=== PATIENT | male | born 1945 | race Caucasian/White ===

== ENCOUNTER 2016-12-07 09:47 | Inpatient (IN) ==
[2016-12-07] MEDS ORDERED: Bupivacaine-MPF 0.25% 10 ML VIAL ONE ×2 (10:22→11:21)
[2016-12-07] MEDS ORDERED: Protamine Sulfate 50 MG/5 ML VIAL IVP ONE (10:22)
[2016-12-07] MEDS ORDERED: Lidocaine 1% 20 ML MDV ONE (10:22)
[2016-12-07] MEDS ORDERED: Heparin 1,000 UNITS/500 mL NS 500 ML ONE ×2 (10:22→10:57)
[2016-12-07] MEDS ORDERED: Albuterol 2.5 MG/3 ML NEBULIZER ONE (10:23)
[2016-12-07] MEDS ORDERED: CeFAZolin Pre 2,000 MG/100 ML 2,000 MG/100 ML BAG IVPB ONE (10:27)
[2016-12-07] MEDS ORDERED: Albuterol 2.5 MG/3 ML NEBULIZER IH ONE (10:27)
[2016-12-07] MEDS: Ringers Solution, Lactated 1,000 ML IVC SCH ×2 (10:28→17:02)
[2016-12-07] MEDS ORDERED: *HR* Midazolam HCl 2 MG/2 ML VIAL ONE (10:33)
[2016-12-07] MEDS ORDERED: *HR* Propofol 200 MG/20 ML VIAL IVP ONE (10:33)
[2016-12-07] MEDS ORDERED: *HR* FentaNYL (PF) 100 MCG/2 ML VIAL ONE ×3 (10:33→14:31)
[2016-12-07] MEDS ORDERED: Lidocaine -MPF 2% 2 ML VIAL ONE (10:33)
--- NOTE | 2016-12-07 10:35 | Anesthesia Evaluation PreOp ---
Date of Encounter: 12/07/16 Time of Encounter: 10:32 - Past History Planned Operation: L CEA Cardiac History: CHF, HTN, Hyperlipidemia, Cardiac Surgery (CABG ~ 1994), Other (good functional capacity (can walk up a flight of stairs)) Pulmonary History: Smoker NETWORK MGR History: Other (bilateral carotid stenosis - no hx of CVA) Other Medical History: Denies Any Significant HX Anesthesia History: No Prior Anesthetic Complications, Past Anesthesia (CABG, neck fusion, hip replacement, fem-fem, L fem-pop) Alcohol Use: none Drug use: none Medications and Allergies Ascorbic Acid [Vitamin C] 1,000 mg PO DAILY 06/26/15 [History] Aspirin [Adult Low Dose Aspirin EC] 81 mg PO DAILY 06/26/15 [History] Carvedilol [Coreg] 6.25 mg PO BIDWM 06/26/15 [History] Clopidogrel [Plavix] 75 mg PO DAILY 06/26/15 [History] Lisinopril [Zestril] 5 mg PO DAILY 06/26/15 [History] OxyCODONE/APAP 10/325 [Percocet 10/325] 1 - 2 tab PO Q4HR PRN #40 tablet [Rx] Allergies No Known Allergies Allergy (Verified 06/26/15 10:50) - Meds/Allergy Pre-op Review Medications Reviewed: Yes Allergies Reviewed: Yes Beta Blockers on Current Med List: Yes If Beta Blockers taken, Date/Time (Last Dose taken): 12-07-16 coreg 7 am Anesthesia Results - Labs Laboratory Tests 12/06/16 12/06/16 12/06/16 14:54 14:54 14:54 WBC 5.7 Hgb 14.8 Hct 44.8 Plt Count 176 PT 11.3 INR 1.0 APTT 28.4 Sodium 135 L Potassium 4.6 H Chloride 99 Carbon Dioxide 26 BUN 20 Creatinine 1.08 Est GFR ( Amer) > 60 Est GFR (Non-Af Amer) > 60 BUN/Creatinine Ratio 19 Glucose 84 Calculated Osmolality 282 Calcium 9.9 - Imaging Additional studies: ordering EKG Anesthesia Exam Last Vital Signs Temp 97.5 F L 12/07/16 10:22 Pulse 64 12/07/16 10:22 Resp 18 12/07/16 10:22 BP 160/73 12/07/16 10:22 Pulse Ox 95 12/07/16 10:22 Weight: 82 kg NPO (# of Hours): >> 8 hrs - HEENT Pupil (Motor): Pupils equal, EOMI Mallampati: III Teeth: Missing Oral Opening: Greater than 3 - NETWORK MGR LOC: Oriented NETWORK MGR Motor: Normal RUE, Normal LUE, Normal RLE, Normal LLE, Normal Face - Cardiac Rhythm: Regular Murmur: None - Pulmonary Breath Sounds: bilateral Clear Respiratory Effort: Symmetrical Anesthesia Assess/Plan ASA Score: 3 Modified [place] Scale for Level of Consciousness: Cooperative, oriented, and tranquil Anesthetic Plan: General Monitoring Plan: Standard Monitors, A-Line Recovery Plan: PACU
--- NOTE | 2016-12-07 11:15 | History & Physical Report ---
Date of Encounter: 12/07/16 Time of Encounter: 10:45 24 Hour HP Update - Instructions Instructions: If the History and Physical is less than 30 days old and was completed prior to A.M. admission and or procedure and has NOT been updated on calendar day of procedure please complete this update prior to performing procedure. - Update Patient reports changes in Medical Condition: No Changes in examination, assessment, or condition: No Changes in Medication: No Preop tests/diagnostics Reviewed: Yes Surgery Remains Indicated: Yes Consent for Planned Operative Procedure(s) Verified: Yes - Pre-Operative Checklist Preoperative Checklist Indicated: Yes Prophylactic Antibiotic Ordered: Yes (vancomycin due to risk of MRSA) Home Medications Include Beta Daniel: Yes Beta Daniel Taken Today (Day of Surgery): Yes Beta Daniel Taken Yesterday (Day Prior to Surgery): Yes Is VTE Prophylaxis Indicated?: Yes
[2016-12-07] MEDS ORDERED: *HR* Remifentanil 2 MG VIAL IVP ONE (11:48)
[2016-12-07] MEDS ORDERED: EPHEDrine 50 MG/ML VIAL ONE (12:14)
[2016-12-07] MEDS ORDERED: Vancomycin 1,000 MG VIAL ONE (12:39)
[2016-12-07] MEDS ORDERED: *HR* Heparin 5,000 UNIT/ML VIAL ONE ×2 (13:28→14:14)
[2016-12-07] MEDS ORDERED: *HR* Metoprolol 5 MG/5 ML VIAL IVP PRN (13:31)
[2016-12-07] MEDS ORDERED: *HR* Morphine 2 MG/ML SYRINGE IVP PRN ×2 (13:31→17:35)
[2016-12-07] MEDS ORDERED: Ondansetron 4 MG/2 ML VIAL IVP ONE (13:31)
[2016-12-07] MEDS ORDERED: Neostigmine Methylsulfate 3 MG/3 ML SYRINGE ONE (16:00)
[2016-12-07] MEDS ORDERED: Dexamethasone 4 MG/ML VIAL ONE (16:00)
[2016-12-07] MEDS ORDERED: Ondansetron 4 MG/2 ML VIAL ONE (16:00)
[2016-12-07] MEDS ORDERED: *HR* Morphine 10 MG/ML VIAL ONE (16:07)
--- NOTE | 2016-12-07 16:12 | Operative Note ---
Date of procedure: 12/07/16 Pre-op diagnosis: 80-99% Left internal carotid artery stenosis Post-op diagnosis: same Procedure: Left carotid endarterectomy with hemashield patch angiolasty. Complications: None Anesthesia: ANJUA Surgeon: Markos Bowles Estimated blood loss (cc): 100 Specimen: Left carotid plaque Condition: stable Disposition: PACU Procedure in Detail: Indications: The patient is a 71 year old male who was found to have a symptomatic 80-99% left internal carotid artery stenosis. A left carotid endarterectomy was recommended to reduce his risk of stroke. Procedure: The patient was identified in the preoperative area. The risks, benefits, and alternatives of the procedure were discussed and all questions were answered. The patient was then taken to the operating room and placed in supine position on the operating table. After induction of general endotracheal anesthesia, the patient was cleaned and draped in normal sterile fashion. A longitudinal incision was made anterior to his left sternocleidomastoid muscle. Hemostasis was then obtained via electrocautery. Through a process of blunt, sharp, and electrocautery dissection, the platysma was traversed. The jugular vein was identified. The facial vein was clamped, divided, tied off with a 2-0 silk suture ligature. The jugular vein was retracted, exposing the carotid bifurcation. Patient received 3000 units of heparin intravenously at this time. Proximal dissection of the common and external carotid arteries were performed circumferentially. Dissection of the internal carotid was performed circumferentially. Vessels loops were passed around the internal and external carotid and an umbilical tape was passed from the common carotid artery. The patient received additional 2000 units of heparin intravenously. Additional heparin was given throughout the case to maintain adequate anticoagulation. After waiting adequate time for it to circulate, the vessels were occluded and a longitudinal arteriotomy was made into the common carotid artery extending into the internal carotid beyond the plaque. Vigorous pulsatile retrograde flow was noted from the internal carotid artery upon release of the loop; therefore, no shunt was placed. A dental [place] was used to perform a standard endarterectomy. A calcific, irregular and ulcerated plaque was excised. Proximal and distal endpoints were inspected. No elevated flaps were noted. A Hemashield patch was cut to fit the defect and sutured in place with running 6 -0 Prolene. Prior to completing the closure, each vessel was flushed and then reoccluded. Heparinized saline was infused into the lumen. The patch was completed. Flow was restored in the external carotid artery, followed the common carotid artery, lastly the internal carotid artery was opened. A low resistance arterialized signal was present within the internal carotid artery beyond the patch. Thrombin and Gelfoam were used to aid in hemostasis. Fibrillar was also used. Meticulous hemostasis was obtained throughout the wound with electrocautery. The patient received 2 doses of Protamine 15mg intravenously. Platelet rich and platelet poor plasma were infused into the wounds. The sternocleidomastoid was reapproximated with interrupted 3-0 Vicryl. Platelet rich and platelet poor plasma were infused into the wound. A TLS drain was brought through a separate stab incision and sutured in place with 0 silk suture. The platysma was reapproximated with running 3-0 Vicryl. Local anesthetic was infused in the skin. A 3-0 Monocryl was used to reapproximate the skin. Sterile dressing was applied. The patient was extubated, taken to the recovery room in stable condition.
--- NOTE | 2016-12-07 17:11 | Electrocardiograph Report ---
[place] [id number] Test Date: 2016-12-07 Pat Name: Trey Donovan Department: 106 Room: Gender: M Chair Frame Builder: : 1945 Requested By: Brigida Todd Order Number: [id number] Reading MD: Raegan Chi Measurements Intervals [place] Rate: 59 P: 19 CA: 139 QRS: 29 QRSD: 109 T: 128 QT: 432 QTc: 432 Interpretive Statements SINUS BRADYCARDIA LEFT VENTRICULAR HYPERTROPHY AND ST-T CHANGE Electronically Signed On 12-07-2016 17:10:24 EDT by Raegan Chi
--- NOTE | 2016-12-07 17:21 | Anesthesia Evaluation Post Op ---
Date of Encounter: 12/07/16 Time of Encounter: 17:20 - Vital Signs Vital Signs: Vital Signs/O2 Sat, Most Current Temp Pulse Resp BP Pulse Ox 97.5 F L 45 12 108/40 99 12/07/16 17:14 12/07/16 17:14 12/07/16 17:14 12/07/16 17:14 12/07/16 17:14 - Lungs Lungs: Clear Ascult./Percussion - Airway Airway: Non-obstructed - Cardiovascular Regular Rate - Mental Status Mental Status: Alert & Oriented, Answers Appropriately - Pain Pain Scale: 0 Pain Scale used: Numeric (1 - 10) - Nausea Vomiting Nausea Vomiting: Not Present - Hydration Hydration: NPO, Draper catheter - Discharge PostOp Status: Transfer Patient to floor
[2016-12-07] MEDS ORDERED: *HR* HYDROcodone/Acet 5/325 mg TABLET PO PRN (17:35)
[2016-12-07] MEDS ORDERED: Naloxone 0.4 MG/ML INJ IVP PRN (17:35)
[2016-12-07] MEDS ORDERED: Ondansetron 4 MG/2 ML VIAL IVP PRN (17:35)
[2016-12-07] MEDS ORDERED: *HR* Labetalol 20 MG/4 ML SYRINGE IVP PRN (17:35)
[2016-12-07] MEDS ORDERED: Acetaminophen 325 MG TABLET PO PRN (17:35)
[2016-12-07] MEDS ORDERED: *HR* OxyCODONE Immed Rel 5 MG TABLET PO PRN (17:35)
[2016-12-07] MEDS: ceFAZolin 2,000 MG in D5% in Water 100 ML IVPB SCH (20:08)
[2016-12-07] MEDS ORDERED: Vancomycin 0 MG in D5% in Water 250 ML IVPB ONE (23:00)
[2016-12-07] MEDS ORDERED: Vancomycin 1,250 MG in D5% in Water 250 ML IVPB ONE (23:00)
[2016-12-08] MEDS: ceFAZolin 2,000 MG in D5% in Water 100 ML IVPB SCH (04:17)
[2016-12-08] MEDS ORDERED: *HR* Heparin 5,000 UNIT/ML VIAL SQ SCH (06:00)
--- NOTE | 2016-12-08 07:46 | Discharge Summary ---
Date of Encounter: 12/08/16 Time of Encounter: 07:55 - Discharge Diagnosis (1) Carotid stenosis, bilateral Priority: Primary Status: Chronic Comments: The patient is postopertaive day #1 after a left carotid endarterectomy for symptomatic left internal carotid artery stenosis. HIs incision is healing. He has no hematoma. He has no neurologic deficits. He will be discharged today. (2) Essential hypertension Priority: Secondary Status: Chronic Comments: He was counseled regarding atherosclerotic risk factor reduction. (3) Atherosclerotic heart disease of [place] coronary artery without angina pectoris Priority: Secondary Status: Chronic Qualifiers: [place] vs. transplanted heart: [place] heart Qualified Code(s): I25.10 - Atherosclerotic heart disease of [place] coronary artery without angina pectoris (4) Tobacco abuse Priority: Secondary Status: Chronic Comments: He was counseled regarding smoking cessation. - Discharge Medications Prescriptions: OxyCODONE/APAP 5/325 [Percocet 5/325 MG] 1 each PO Q6HR PRN #24 tablet PRN Reason: postoperative pain Home Medications: Ascorbic Acid [Vitamin C] 1,000 mg PO DAILY 06/26/15 [History] Carvedilol [Coreg] 6.25 mg PO BIDWM 06/26/15 [History] Clopidogrel [Plavix] 75 mg PO DAILY 06/26/15 [History] Aspirin 81 mg PO DAILY 12/07/16 [History] Lisinopril/Hydrochlorothiazide [Zestoretic 10-12.5 mg Tablet] 1 each PO DAILY [History] [place]-3/Dha/Epa/Fish Oil [Fish Oil 1,000 mg Softgel] 1,000 mg PO DAILY 12/07/16 [History] OxyCODONE/APAP 5/325 [Percocet 5/325 MG] 1 each PO Q6HR PRN #24 tablet 12/08/16 [Rx] Allergies/Adverse Reactions: Allergies No Known Allergies Allergy (Verified 12/07/16 10:52) Procedures/tests Complete & Pending: Procedures Performed prior 72 hours Category Date Time Status EKG [ECG 12 lead ECG] [ECG] Stat Y 12/07/16 10:34 Completed Date of admission: 12/07/16 17:49 Primary care physician: Laura Schultz Consults: 12/07/16 18:06 Consult to Carpenter Assistant Installer [CONS] Routine Reason for SW Consult: Family wants information on advanced directives. Sent home with admit handouts on advanced directives Procedure(s) Performed: Left carotid endarterectomy Discharging clinician: Markos Bowles Anticipated date of discharge: 12/08/16 - Patient Status Disposition: Home, Self-Care Condition: Good Functional capacity at discharge: independent ambulation Overall status at discharge: patient is back to baseline - Discharge Instructions Follow Up With: Markos Bowles MD [Partnered Physician] - 01/17/17 1:00 pm Laura Schultz MD [Primary Care Provider] - 12/21/16 2:30 pm Additional Instructions: May remove bandage and shower on 12/09/16. Wash wound gently and pat to dry. Call Dr. Bowles at [phone] with questions or concerns. - Diet and Activity Activity: increase activity as tolerated Diet: advance to your usual diet - Hospital Course Hospital course: Mr. Donovan is a 71 year old male with a symptomatic 80-99% left internal carotid artery stenosis. He underwent a left carotid endarterctomy on 12/07/16. He tolerated the procedure well. On postoeprative day #1 he was alert, without any neurologic deficits and his wound was healing without hematoma. He was discharged in stable condition on postoperative day #1 without complications. - Time Spent with Patient Total time spent providing and/or coordinating discharge services: Exam Vital Signs, Last 4 Hours Temp Pulse Resp BP Pulse Ox 12/08/16 05:24 97.4 F L 49 16 118/45 99 12/08/16 04:15 46 16 95/34 99 General: Present: Conversant, No Apparent Distress HEENT: Present: Trachea midline, Pupils equal Neck: Present: Other (incisions clean, dry and intact without erythema or drainage, no tongue deviation, no heamtoma). Absent: JVD, Tracheal deviation Cardiac: Present: Reg Rate and Rhythm Lungs: Present: Normal Breath Sounds Neuro: Present: Alert and responsive, No focal deficits noted, Motor nerves grossly intact, Sensory nerves grossly intact Abdomen: Present: Soft Vascular: Present: Normal capillary refill Skin: Present: No rashes noted on visualized skin - VTE Documentation of Mechanical Device: Intermittent pneumatic compression device
[2016-12-08 07:49] VITALS: BP 127/49
[2016-12-08] MEDS ORDERED: OMEGA FISH OIL PO SCH (09:00)
[2016-12-08] MEDS ORDERED: *HR* Metoprolol 5 MG/5 ML VIAL IVP SCH (09:00)
[2016-12-08] MEDS ORDERED: Aspirin 81 MG TAB.CHEW PO SCH (09:00)
[2016-12-08] MEDS ORDERED: Ascorbic Acid 500 MG TABLET PO SCH (09:00)
== END 2016-12-08 10:00 | disposition home or self-care (01) | DRG 39 ==
LOC: SAMDAY 09:47 → 2NNU 17:49
PROVIDERS: ADMIT Surgery; ATTEND Surgery

== ENCOUNTER 2022-01-06 11:42 | Inpatient (IN) ==
[2022-01-06 14:41] LABS: Basophils % 0.5 %; Eosinophils # 0.1 K/mcL (0.0-0.6); Eosinophils % 0.8 %; Hematocrit 35.6 % (37.5-50.1); Hemoglobin 11.2 g/dL (12.9-16.9); Immature Granulocytes % 0.5 % (0-4); Lymphocytes # 1.7 K/mcL (0.6-4.6); Lymphocytes % 20.8 %; Mean Corpuscular HGB Conc 31.5 g/dL (31.6-35.5); Mean Corpuscular Hemoglobin 31.3 pg (28.0-33.3); Mean Corpuscular Volume 99.4 fL (83.0-100.0); Mean Platelet Volume 12.2 fL (9.4-12.4); Monocytes # 0.5 K/mcL (0.0-1.3); Monocytes % 5.7 %; Neutrophils # 5.7 K/mcL (1.6-8.9); Platelet Count 232 K/mcL (140-400); Red Blood Count 3.58 M/mcL (4.19-5.50); Red Cell Distribution Width 13.4 % (11.5-14.5); Segmented Neutrophils % 71.7 %; White Blood Count 7.9 K/mcL (4.3-11.1)
[2022-01-06 14:52] LABS: Bacteria,Urine Few per hpf (None-Few); Bilirubin,Urine Negative (Negative); Blood,Urine Negative (Negative); Clarity,Urine Clear (Clear); Color,Urine Light-Yellow (Yellow); Glucose,Urine (UA) Normal (Normal); Hyaline Casts,Urine Few per lpf (None Seen); Ketones,Urine Negative (Negative); Leukocyte Esterase,Urine Small (Negative); Mucus,Urine Few per lpf (None-Few); Nitrite,Urine Negative (Negative); PH,Urine 5.5 pH Units (5.0-8.0); Protein,Urine Trace mg/dL (Neg-Trace); RBC,Urine 0-3 per hpf (0-3); Specific Gravity,Urine 1.027 (1.010-1.025); Squamous Epithelial Cell,Urine Few per hpf (None-Few); Urobilinogen,Urine Normal (Normal)
[2022-01-06] MEDS ORDERED: Levalbuterol Neb 1.25 MG/3 ML IH STA ×2 (14:54→17:42)
[2022-01-06] MEDS ORDERED: methylPREDNISolone 125 MG/2 ML VIAL IVP ONE (14:54)
[2022-01-06] MEDS ORDERED: Morphine Sulfate 2 MG/ML SYRINGE IVP STA (14:54)
[2022-01-06] MEDS ORDERED: Cefepime HCl 2,000 MG in 0.9 % Sodium Chloride 10 ML IVP ONE (14:55)
[2022-01-06 14:57] LABS: Calcium 9.6 mg/dL (8.6-10.3); Potassium 5.8 mEq/L (3.5-5.1)
[2022-01-06] MEDS ORDERED: Vancomycin 1,250 MG/262.5 ML IV.SOLN IVPB ONE (15:00)
[2022-01-06 15:07] LABS: Troponin I 0.32 ng/mL (< 0.04)
[2022-01-06] MEDS ORDERED: *HR* Heparin 5,000 UNIT/ML VIAL IVP ONE (15:17)
[2022-01-06] MEDS ORDERED: *HR* Heparin 5,000 UNIT/ML VIAL IVP PRN ×2 (15:17)
[2022-01-06] MEDS ORDERED: Aspirin 81 MG TAB.CHEW PO STA (15:19)
[2022-01-06] MEDS ORDERED: 0.9 % Sodium Chloride 500 ML IVC ONE (15:30)
[2022-01-06 15:58] LABS: Heparin anti-factor XA UFH < 0.04 IU/mL (0.30-0.70); INR 1.1; Prothrombin Time 12.1 Seconds (9.4-12.1)
[2022-01-06] MEDS ORDERED: 0.9 % Sodium Chloride 250 ML IVC ONE (16:00)
[2022-01-06] MEDS: Heparin 25,000UNIT/250ML 1/2NS 25,000 UNIT/250 ML IV.SOLN IVC SCH (17:38)
[2022-01-06] MEDS ORDERED: Acetaminophen 325 MG TABLET PO PRN (20:55)
[2022-01-06] MEDS ORDERED: Naloxone 0.4 MG/ML INJ IVP PRN (20:55)
[2022-01-06] MEDS ORDERED: Ondansetron 4 MG/2 ML VIAL IVP PRN (20:55)
[2022-01-06] MEDS: Ipratropium/Albuterol Neb 3 ML IH SCH (22:52)
[2022-01-06 23:39] LABS: Calcium 8.8 mg/dL (8.6-10.3); Potassium 7.2 mEq/L (3.5-5.1)
[2022-01-06] MEDS ORDERED: Albuterol 2.5 MG/3 ML NEBULIZER IH ONE (23:47)
[2022-01-06] MEDS ORDERED: Insulin Human Regular 5 UNIT in 0.9 % Sodium Chloride 10 ML IV ONE (23:47)
[2022-01-06] MEDS ORDERED: Calcium Gluconate 1gm/50mL 1 GM/50 ML BAG IVPB ONE (23:47)
[2022-01-06] MEDS ORDERED: Dextrose Gel 15 GM/37.5 ML TUBE PO PRN ×2 (23:48)
[2022-01-06] MEDS ORDERED: *HR* Dextrose 50 % in Water (Syg) 50 ML SYRINGE IVP PRN (23:48)
[2022-01-06] MEDS ORDERED: D5% in Water 1,000 ML IVC PRN (23:48)
[2022-01-07] MEDS: SODIUM ZIRCONIUM CYCLOSILICATE 5 GM POWD.PACK PO SCH ×3 (00:18→22:13)
[2022-01-07 02:07] LABS: Basophils % 0.1 %; Eosinophils % 0.1 %; Hematocrit 31.8 % (37.5-50.1); Immature Granulocytes % 0.3 % (0-4); Lymphocytes # 0.8 K/mcL (0.6-4.6); Lymphocytes % 8.9 %; Mean Corpuscular HGB Conc 31.4 g/dL (31.6-35.5); Mean Corpuscular Hemoglobin 31.3 pg (28.0-33.3); Mean Corpuscular Volume 99.7 fL (83.0-100.0); Mean Platelet Volume 12.2 fL (9.4-12.4); Monocytes # 0.1 K/mcL (0.0-1.3); Monocytes % 0.8 %; Neutrophils # 7.9 K/mcL (1.6-8.9); Platelet Count 218 K/mcL (140-400); Red Blood Count 3.19 M/mcL (4.19-5.50); Red Cell Distribution Width 13.4 % (11.5-14.5); Segmented Neutrophils % 89.8 %; White Blood Count 8.8 K/mcL (4.3-11.1)
[2022-01-07 02:35] LABS: Albumin 3.7 g/dL (3.5-5.7); Albumin/Globulin Ratio 1.2 (1.1-2.2); Bilirubin,Total 0.4 mg/dL (0.3-1.0); Calcium 9.1 mg/dL (8.6-10.3); Globulin 3.1 g/dL (2.4-3.5); Magnesium 2.3 mg/dL (1.6-2.6); Phosphorous 4.6 mg/dL (2.7-4.5); Potassium 5.3 mEq/L (3.5-5.1); Total Protein 6.8 g/dL (6.4-8.9); Troponin I 1.67 ng/mL (< 0.04)
[2022-01-07] MEDS: Ipratropium/Albuterol Neb 3 ML IH SCH ×4 (03:41→23:48)
[2022-01-07] MEDS ORDERED: Perflutren Lipid Microsphere 1.3 ML in 0.9 % Sodium Chloride 8.7 ML IVP PRN (04:49)
[2022-01-07] MEDS: Cefepime HCl 1,000 MG in 0.9 % Sodium Chloride 10 ML IVP SCH ×2 (06:07→06:15)
[2022-01-07 07:38] LABS: Albumin 3.6 g/dL (3.5-5.7); Albumin/Globulin Ratio 1.2 (1.1-2.2); Bilirubin,Total 0.4 mg/dL (0.3-1.0); Calcium 9.1 mg/dL (8.6-10.3); Total Protein 6.6 g/dL (6.4-8.9)
[2022-01-07] MEDS ORDERED: Iopamidol - 370 500 ML MLS IVP ONE (08:42)
[2022-01-07] MEDS ORDERED: 0.9 % Sodium Chloride 1,000 ML IVC ONE (11:27)
[2022-01-07] MEDS: Aspirin Enteric Coated 81 MG Tablet PO SCH (13:05)
[2022-01-07 13:20] LABS: Calcium 9.2 mg/dL (8.6-10.3); Potassium 6.1 mEq/L (3.5-5.1)
[2022-01-07] MEDS ORDERED: Furosemide 40 MG/4 ML VIAL IVP STA (14:02)
[2022-01-07 14:56] LABS: Potassium 5.6 mEq/L (3.5-5.1); Uric Acid 10.6 mg/dL (2.3-7.6)
[2022-01-07] MEDS: cephALEXin 500 MG CAPSULE PO SCH ×2 (17:04→22:26)
[2022-01-07] MEDS ORDERED: Cefepime HCl 2,000 MG in 0.9 % Sodium Chloride 10 ML IVP SCH (18:00)
[2022-01-07] MEDS: Heparin 25,000UNIT/250ML 1/2NS 25,000 UNIT/250 ML IV.SOLN IVC SCH (20:08)
[2022-01-07] MEDS: Doxycycline 100 MG CAPSULE PO SCH (22:26)
[2022-01-08] MEDS: Melatonin 3 MG TABLET PO PRN (01:18)
[2022-01-08 02:16] LABS: Basophils % 0.1 %; Hematocrit 29.1 % (37.5-50.1); Hemoglobin 9.1 g/dL (12.9-16.9); Immature Granulocytes % 0.7 % (0-4); Lymphocytes % 7.7 %; Mean Corpuscular HGB Conc 31.3 g/dL (31.6-35.5); Mean Corpuscular Hemoglobin 31.1 pg (28.0-33.3); Mean Corpuscular Volume 99.3 fL (83.0-100.0); Mean Platelet Volume 12.5 fL (9.4-12.4); Monocytes # 0.7 K/mcL (0.0-1.3); Monocytes % 5.6 %; Neutrophils # 11.2 K/mcL (1.6-8.9); Platelet Count 197 K/mcL (140-400); Red Blood Count 2.93 M/mcL (4.19-5.50); Red Cell Distribution Width 13.6 % (11.5-14.5); Segmented Neutrophils % 85.9 %; White Blood Count 13.1 K/mcL (4.3-11.1)
[2022-01-08 02:20] LABS: VBG Ionized Calcium 1.14 mmol/L (1.15-1.35)
[2022-01-08 02:31] LABS: Uric Acid 11.5 mg/dL (2.3-7.6)
[2022-01-08 02:32] LABS: Calcium 8.7 mg/dL (8.6-10.3); Magnesium 2.4 mg/dL (1.6-2.6); Phosphorous 5.1 mg/dL (2.7-4.5); Potassium 5.6 mEq/L (3.5-5.1)
[2022-01-08 03:38] LABS: Sodium, Urine 17.9 mEq/L
[2022-01-08] MEDS: Ipratropium/Albuterol Neb 3 ML IH SCH ×6 (04:25→22:56)
[2022-01-08] MEDS: Doxycycline 100 MG CAPSULE PO SCH ×2 (09:22→20:19)
[2022-01-08] MEDS: cephALEXin 500 MG CAPSULE PO SCH ×4 (09:22→20:19)
[2022-01-08] MEDS: Aspirin Enteric Coated 81 MG Tablet PO SCH (09:22)
[2022-01-08] MEDS ORDERED: Furosemide 40 MG/4 ML VIAL ONE (10:41)
[2022-01-08] MEDS: Furosemide 40 MG/4 ML VIAL IVP SCH ×2 (11:30→15:20)
[2022-01-08] MEDS ORDERED: Azithromycin 250 MG TABLET PO ONE (11:53)
[2022-01-08] MEDS ORDERED: Calcium Gluconate 1gm/50mL 1 GM/50 ML BAG IVPB SCH (12:00)
[2022-01-08] MEDS: predniSONE 20 MG TABLET PO SCH (12:52)
[2022-01-08] MEDS: Metoprolol XL (24 HR) Succ 25 MG TAB.ER.24H PO SCH (15:19)
[2022-01-08] MEDS: Albumin 25% 25gram/100mL 25 GM/100 ML IV.SOLN IVPB SCH ×2 (15:19→23:27)
[2022-01-09] MEDS: Heparin 25,000UNIT/250ML 1/2NS 25,000 UNIT/250 ML IV.SOLN IVC SCH (00:23)
[2022-01-09] MEDS: Ipratropium/Albuterol Neb 3 ML IH SCH ×7 (04:01→23:21)
[2022-01-09] MEDS: Albumin 25% 25gram/100mL 25 GM/100 ML IV.SOLN IVPB SCH ×2 (07:48→15:20)
[2022-01-09] MEDS: predniSONE 20 MG TABLET PO SCH (07:49)
[2022-01-09] MEDS: Metoprolol XL (24 HR) Succ 25 MG TAB.ER.24H PO SCH ×2 (07:49→20:56)
[2022-01-09] MEDS: Furosemide 40 MG/4 ML VIAL IVP SCH ×2 (07:49→15:20)
[2022-01-09] MEDS: Aspirin Enteric Coated 81 MG Tablet PO SCH (07:49)
[2022-01-09] MEDS: cephALEXin 500 MG CAPSULE PO SCH ×4 (07:50→20:56)
[2022-01-09] MEDS: Doxycycline 100 MG CAPSULE PO SCH ×2 (07:50→20:56)
[2022-01-09] MEDS ORDERED: Azithromycin 250 MG TABLET PO SCH (09:00)
[2022-01-09 09:26] LABS: Hematocrit 25.8 % (37.5-50.1); Hemoglobin 8.3 g/dL (12.9-16.9); Mean Corpuscular HGB Conc 32.2 g/dL (31.6-35.5); Mean Corpuscular Hemoglobin 31.4 pg (28.0-33.3); Mean Corpuscular Volume 97.7 fL (83.0-100.0); Mean Platelet Volume 12.7 fL (9.4-12.4); Platelet Count 157 K/mcL (140-400); Red Blood Count 2.64 M/mcL (4.19-5.50); Red Cell Distribution Width 13.9 % (11.5-14.5); White Blood Count 10.1 K/mcL (4.3-11.1)
[2022-01-09 09:43] LABS: Calcium 8.9 mg/dL (8.6-10.3); Potassium 4.8 mEq/L (3.5-5.1)
[2022-01-09] MEDS: *HR* LORazepam 0.5 MG TABLET PO PRN ×2 (13:40→20:56)
[2022-01-09] MEDS: Sennosides/Docusate Sodium TABLET PO SCH ×2 (13:40→20:56)
[2022-01-09] MEDS: Melatonin 3 MG TABLET PO PRN (20:56)
[2022-01-10] MEDS: Albumin 25% 25gram/100mL 25 GM/100 ML IV.SOLN IVPB SCH ×2 (00:49→07:53)
[2022-01-10] MEDS: Heparin 25,000UNIT/250ML 1/2NS 25,000 UNIT/250 ML IV.SOLN IVC SCH (01:44)
[2022-01-10 02:32] LABS: Hematocrit 25.3 % (37.5-50.1); Hemoglobin 8.3 g/dL (12.9-16.9); Mean Corpuscular HGB Conc 32.8 g/dL (31.6-35.5); Mean Corpuscular Hemoglobin 31.9 pg (28.0-33.3); Mean Corpuscular Volume 97.3 fL (83.0-100.0); Mean Platelet Volume 12.6 fL (9.4-12.4); Platelet Count 169 K/mcL (140-400); White Blood Count 11.8 K/mcL (4.3-11.1)
[2022-01-10 02:37] LABS: VBG HCO3 24 mEq/L (21-27); VBG PCO2 51 mmHg (41-51); VBG PH 7.28 pH Units (7.32-7.42); VBG PO2 54 mmHg (25-50)
[2022-01-10 02:50] LABS: Calcium 9.1 mg/dL (8.6-10.3); Magnesium 2.6 mg/dL (1.6-2.6); Phosphorous 6.4 mg/dL (2.7-4.5); Potassium 5.2 mEq/L (3.5-5.1)
[2022-01-10] MEDS: *HR* LORazepam 0.5 MG TABLET PO PRN ×2 (03:20→07:52)
[2022-01-10] MEDS: Ipratropium/Albuterol Neb 3 ML IH SCH ×3 (04:04→11:44)
[2022-01-10 07:19] VITALS: BP 113/74; PULSE 122; TEMP 98.2
[2022-01-10] MEDS: Furosemide 40 MG/4 ML VIAL IVP SCH ×3 (07:52→15:25)
[2022-01-10] MEDS: predniSONE 20 MG TABLET PO SCH (07:52)
[2022-01-10] MEDS: Sennosides/Docusate Sodium TABLET PO SCH (07:53)
[2022-01-10] MEDS: Doxycycline 100 MG CAPSULE PO SCH (07:53)
[2022-01-10] MEDS: Metoprolol XL (24 HR) Succ 25 MG TAB.ER.24H PO SCH (07:53)
[2022-01-10] MEDS: Aspirin Enteric Coated 81 MG Tablet PO SCH (07:53)
[2022-01-10] MEDS: cephALEXin 500 MG CAPSULE PO SCH (07:53)
[2022-01-10 08:16] VITALS: O2SAT 96
[2022-01-10] MEDS ORDERED: Morphine Sulfate 2 MG/ML SYRINGE IVP ONE ×2 (10:19→10:28)
[2022-01-10] MEDS ORDERED: *HR* HYDROmorphone (PF) 1 MG/ML SYRINGE IVP PRN (11:39)
[2022-01-10] MEDS ORDERED: *HR* LORazepam 2 MG/ML VIAL IVP PRN (11:40)
[2022-01-10] MEDS ORDERED: Atropine Sulfate 1% 40 DROP/2 ML BOTTLE SL PRN (11:41)
[2022-01-10] MEDS ORDERED: Scopolamine Patch 1.5 MG PATCH.TD72 TD SCH (11:45)
[2022-01-10] MEDS ORDERED: Ipratropium/Albuterol Neb 3 ML IH PRN (12:35)
[2022-01-10] MEDS ORDERED: FentaNYL (PF) 1,000 MCG/100 ML IV.SOLN IVC SCH (14:30)
[2022-01-10] MEDS ORDERED: Glycopyrrolate 0.2 MG/ML VIAL IVP PRN (15:11)
== END 2022-01-10 16:22 | disposition expired ==
LOC: 2NENU 11:42 → EMEROOARM 11:42 → SUATTDRO 18:33 → 2NENU 19:45 → SUATTDRO 01-07 08:05 → 2ANU 01-10 11:40
PROVIDERS: ADMIT Internal Medicine; ATTEND Family Medicine